=== PATIENT | male | born 1945 | race Caucasian/White ===

== ENCOUNTER 2019-06-01 08:41 | Outpatient (CLI) | payer MEDICARE, SELFPAY ==
[2019-06-01 09:49] LABS: Alanine Aminotransferase 45 U/L (16-63); Cholesterol 136 mg/dL (0-200); HDL Direct 45 mg/dL (40-60); LDL Cholesterol Calculated 78 mg/dL (<130); Triglycerides 66 mg/dL (0-150)
== END 2019-06-01 08:42 | disposition home or self-care (01) ==
LOC: CHSLAB 08:44
PROVIDERS: PCP Internal Medicine; Visit Provider Specialist
DX: I25.10 Atherosclerotic heart disease of native coronary artery without angina pectoris (principal)
CPT/HCPCS: 36415; 80061; 84460

== ENCOUNTER 2020-01-22 10:47 | Outpatient (CLI) | payer MEDICARE, SELFPAY ==
[2020-01-22 10:57] LABS: Basophils Absolute Auto 0.03 K/mm3 (0.00-0.10); Basophils Percent Auto 0.5 % (0.0-1.0); Eosinophils Absolute Auto 0.15 K/mm3 (0.02-0.50); Eosinophils Percent Auto 2.3 % (1.0-6.0); Hematocrit 48.2 % (37.0-46.0); Immature Granulocyte Absolute 0.01 K/mm3 (0.00-0.00); Immature Granulocyte Percent A 0.2 % (0.0-0.0); Lymphocytes Absolute Auto 1.74 K/mm3 (1.10-4.50); Lymphocytes Percent Auto 26.3 % (18.0-42.0); Mean Corpuscular HGB Conc 33.2 g/dL (32.0-36.0); Mean Corpuscular Hemoglobin 30.3 pg (27.0-31.0); Mean Corpuscular Volume 91.3 fL (78.0-102.0); Mean Platelet Volume 10.6 fl (8.7-11.0); Monocytes Absolute Auto 0.54 K/mm3 (0.10-0.90); Monocytes Percent Auto 8.2 % (2.0-11.0); Neutrophils Absolute Auto 4.2 K/mm3 (1.7-7.2); Neutrophils Percent Auto 62.5 % (50.0-70.0); Platelet Count Result 145 K/mm3 (150-420); Red Blood Count 5.28 M/mm3 (4.70-6.10); Red Cell Distribution Width 12.4 % (11.6-14.4); White Blood Count 6.6 K/mm3 (4.8-10.8)
== END 2020-01-22 10:48 | disposition home or self-care (01) ==
LOC: CHSLAB 10:48
PROVIDERS: PCP Internal Medicine; Visit Provider Internal Medicine
DX: J02.9 Acute pharyngitis, unspecified (principal)
CPT/HCPCS: 85025; 87081; 87880

== ENCOUNTER 2020-02-12 15:39 | Outpatient (CLI) | payer MEDICARE, OTHER, SELFPAY ==
--- NOTE | ~2020-02-12 | XR_ITS ---
XR chest 2V DATE: 02/12/2020 16:20 INDICATION: Left chest wall and rib pain, shortness of breath for 2 days. TECHNIQUE: 2 view chest COMPARISON: 11/09/2018 2 view chest FINDINGS: Heart size is within normal limits. Is mild aortic unfolding. No hilar or mediastinal enlar gement is evident since 11/09/2018. The lungs are moderately hyperinflated but clear of infiltrate or consolidation. No pleural effusion or pulmonary vascular congestion or pneumothorax. Diffuse osteopenia. IMPRESSION: No active cardiac pulmonary disease or significant change since 11/09/2018 Reviewed, dictated and finalized at location A. NISTRATIVE ASSISTANT IMPRESSION: No active cardiac pulmonary disease or significant change since 10/16
[2020-02-12 15:58] LABS: Basophils Absolute Auto 0.03 K/mm3 (0.00-0.10); Basophils Percent Auto 0.4 % (0.0-1.0); Eosinophils Absolute Auto 0.24 K/mm3 (0.02-0.50); Eosinophils Percent Auto 3.3 % (1.0-6.0); Hematocrit 48.2 % (37.0-46.0); Hemoglobin 16.1 g/dL (12.4-15.3); Immature Granulocyte Absolute 0.01 K/mm3 (0.00-0.00); Immature Granulocyte Percent A 0.1 % (0.0-0.0); Lymphocytes Absolute Auto 2.46 K/mm3 (1.10-4.50); Lymphocytes Percent Auto 34.2 % (18.0-42.0); Mean Corpuscular HGB Conc 33.4 g/dL (32.0-36.0); Mean Corpuscular Hemoglobin 30.1 pg (27.0-31.0); Mean Corpuscular Volume 90.3 fL (78.0-102.0); Mean Platelet Volume 10.4 fl (8.7-11.0); Monocytes Absolute Auto 0.85 K/mm3 (0.10-0.90); Monocytes Percent Auto 11.8 % (2.0-11.0); Neutrophils Absolute Auto 3.6 K/mm3 (1.7-7.2); Neutrophils Percent Auto 50.2 % (50.0-70.0); Platelet Count Result 159 K/mm3 (150-420); Red Blood Count 5.34 M/mm3 (4.70-6.10); Red Cell Distribution Width 12.7 % (11.6-14.4); White Blood Count 7.2 K/mm3 (4.8-10.8)
[2020-02-12 16:22] LABS: Anion Gap 8 mmol/L (8-16); Blood Urea Nitrogen 10 mg/dL (7-18); CRP < 0.5 mg/dL (0.0-0.9); Calcium 8.9 mg/dL (8.5-10.1); Carbon Dioxide 31 mmol/L (21-32); Chloride 103 mmol/L (98-108); Estimated Glomerular Filt Rate > 60; Glucose 89 mg/dL (70-99); Osmolality Calculated 292 mOsm/kg (285-295); Potassium 3.8 mmol/L (3.5-5.1); Sodium 142 mmol/L (136-145)
[2020-02-12 17:09] LABS: Erythrocyte Sedimentation Rate 2 mm/hr (0-20)
== END 2020-02-12 15:40 | disposition home or self-care (01) ==
PROVIDERS: PCP Internal Medicine; Visit Provider Internal Medicine
DX: R09.1 Pleurisy (principal)
CPT/HCPCS: 36415; 71046; 80048; 85025; 85652; 86140

== ENCOUNTER 2020-03-28 15:15 | Emergency (ER) | payer MEDICARE, OTHER, SELFPAY ==
[2020-03-28 15:18] VITALS: BP 158/96; PULSE 87; RESP 16; TEMP 36.1; O2SAT 97
[2020-03-28] MEDS: PHENYLEPHRINE HCL 0.5% NA SPRAY 15 ML BTL (*BKC) 1 SPRAY (15:40)
--- NOTE | 2020-03-28 15:59 | ED.EPISTAXIS ---
HPI - Epistaxis General Chief complaint: Epistaxis Stated complaint: AMB Source: patient Limitations: no limitations History of Present Illness HPI Narrative: Pt has had a nosebleed, was seen in pcp office and packing placed yesterday. Today he had some caudery done, and it was bleeding again. He wouldn't let his pcp pack it again. He had very conrolled oozing from nose on his arrival. complaint: epistaxis Location: left nostril Onset (ago): minute(s) Duration: constant Context: other anticoagulant use Treatment prior to arrival: nasal clamp Related Data Home Medications Medication Instructions Recorded Confirmed apixaban [Eliquis] 5 mg PO BID 03/28/20 03/28/20 cyanocobalamin (vitamin B-12) 2,500 mcg SUBLINGUAL DAILY 03/28/20 03/28/20 metoprolol succinate 25 mg PO DAILY 03/28/20 03/28/20 omeprazole 20 mg PO DAILY 03/28/20 03/28/20 pravastatin 20 mg PO DAILY 03/28/20 03/28/20 primidone 100 mg PO BID 03/28/20 03/28/20 tamsulosin 0.4 mg PO DAILY 03/28/20 03/28/20 Allergies Allergy/AdvReac Type Severity Reaction Status Date / Time No Known Allergies Allergy Verified 03/28/20 15:24 Review of Systems Review of Systems: All systems reviewed & are unremarkable except as noted in HPI and below Constitutional: Constitutional: Reports no additional constitutional complaints Eyes: Comments: eyes watered with nasal packing ENT: Reports as per HPI Cardiovascular: Cardiovascular: Reports no additional cardiovascular complaints Respiratory: Respiratory: Reports no additional respiratory complaints Gastrointestinal: Gastrointestinal: Reports no additional gastrointestinal complaints Genitourinary: Genitourinary: Reports no additional male genitourinary complaints Musculoskeletal: Musculoskeletal: Reports no additional musculoskeletal complaints Integumentary/Breasts: Skin/Breast: Reports system reviewed and no additional complaints, except as docu Neurologic: Reports system reviewed and no additional complaints, except as documented Psychiatric: Psychiatric: Reports no additional psychiatric complaints Endocrine: Endocrine: Reports no additional endocrine complaints Hematologic/Lymphatic: Hematologic/Lymphatic: Reports no additional hematologic/lymphatic complaints Allergic/Immunologic: Allergic/Immunologic: Reports no additional allergic/immunologic complaints [facility] Past Medical History Medical History (Updated 03/28/20 @ 16:17 by Paulette Rodriguez MD) Atrial flutter GERD (gastroesophageal reflux disease) HTN (hypertension) Hyperlipidemia Social History Social History (Updated 03/28/20 @ 16:18 by Paulette Rodriguez MD) Smoking status: Never smoker Alcohol intake: never Substance use: never Exam Const: General: no acute distress and alert Orientation/consciousness: patient oriented x3 HENMT: Head: normal to inspection Other: blood clot in nose, no posterior drainage. Recent caudery by pcp. minimal bleeding at this time. Slow oozing from site. Eyes: Conjunctivae: conjunctivae normal Neck: Neck: normal visual inspection Chest: Chest palpation & inspection: normal inspection of the chest Resp: Effort & Inspection: normal respiratory effort : Testes: Testes normal Back/Spine/Pelvis: Back: no CVA tenderness Skin: General skin exam: normal color Neuro: General: patient oriented x3 and moves all extremities Extrem: General: normal to inspection Psych: Mental Status: mental status grossly normal Affect: Anxious affect present Course Vital Signs Vital signs: Vital Signs Temperature 36.1 C L 03/28/20 15:18 Pulse Rate 87 03/28/20 15:18 Respiratory Rate 16 03/28/20 15:18 Blood Pressure 158/96 H 03/28/20 15:18 Pulse Oximetry 97 03/28/20 15:18 Temperature 36.1 C L 03/28/20 15:18 Pulse Rate 87 03/28/20 15:18 Respiratory Rate 16 03/28/20 15:18 Blood Pressure 140/77 03/28/20 16:07 Pulse Oximetry 97 03/28/20 15:18 Procedur
--- NOTE | 2020-03-28 16:06 | PC.NURSE ---
RHINO ROCKET PLACED BY ERP TO LEFT NARE
[2020-03-28 16:07] VITALS: BP 140/77
== END 2020-03-28 16:22 | disposition home or self-care (01) ==
PROVIDERS: Emergency Provider Emergency Medicine; PCP Internal Medicine
DX: R01.0 Benign and innocent cardiac murmurs (principal); K21.9 Gastro-esophageal reflux disease without esophagitis; I10 Essential (primary) hypertension; E78.5 Hyperlipidemia, unspecified
CPT/HCPCS: 30901; 99283; A9270

== ENCOUNTER 2020-08-08 08:58 | Outpatient (CLI) | payer MEDICARE, SELFPAY ==
[2020-08-08 09:45] LABS: Alanine Aminotransferase 41 U/L (16-63); Cholesterol 134 mg/dL (0-200); HDL Direct 44 mg/dL (40-60); LDL Cholesterol Calculated 78 mg/dL (<130); Triglycerides 58 mg/dL (0-150)
== END 2020-08-08 08:59 | disposition home or self-care (01) ==
LOC: CHSLAB 09:02
PROVIDERS: PCP Internal Medicine; Visit Provider Specialist
DX: E78.2 Mixed hyperlipidemia (principal); I48.0 Paroxysmal atrial fibrillation; I25.10 Atherosclerotic heart disease of native coronary artery without angina pectoris
CPT/HCPCS: 36415; 80061; 84460

== ENCOUNTER 2021-02-04 08:31 | Outpatient (CLI) | payer MEDICARE, SELFPAY ==
[2021-02-04 09:13] LABS: Alanine Aminotransferase 46 U/L (16-63); Cholesterol 118 mg/dL (0-200); HDL Direct 46 mg/dL (40-60); LDL Cholesterol Calculated 59 mg/dL (<130); Triglycerides 65 mg/dL (0-150)
== END 2021-02-04 08:32 | disposition home or self-care (01) ==
LOC: CHSLAB 08:33
PROVIDERS: PCP Internal Medicine; Visit Provider Specialist
DX: E78.2 Mixed hyperlipidemia (principal); I25.10 Atherosclerotic heart disease of native coronary artery without angina pectoris; R00.2 Palpitations; I48.0 Paroxysmal atrial fibrillation
CPT/HCPCS: 36415; 80061; 84460

== ENCOUNTER 2021-04-30 09:19 | Outpatient (CLI) | payer MEDICARE, SELFPAY ==
[2021-04-30 09:30] LABS: Basophils Absolute Auto 0.03 K/mm3 (0.00-0.10); Basophils Percent Auto 0.5 % (0.0-1.0); Eosinophils Absolute Auto 0.21 K/mm3 (0.02-0.50); Eosinophils Percent Auto 3.2 % (1.0-6.0); Hematocrit 48.4 % (37.0-46.0); Hemoglobin 16.6 g/dL (12.4-15.3); Immature Granulocyte Absolute 0.01 K/mm3 (0.00-0.00); Immature Granulocyte Percent A 0.2 % (0.0-0.0); Lymphocytes Absolute Auto 2.21 K/mm3 (1.10-4.50); Lymphocytes Percent Auto 33.6 % (18.0-42.0); Mean Corpuscular HGB Conc 34.3 g/dL (32.0-36.0); Mean Corpuscular Hemoglobin 31.2 pg (27.0-31.0); Mean Platelet Volume 10.6 fl (8.7-11.0); Monocytes Percent Auto 10.6 % (2.0-11.0); Neutrophils Absolute Auto 3.4 K/mm3 (1.7-7.2); Neutrophils Percent Auto 51.9 % (50.0-70.0); Platelet Count Result 153 K/mm3 (150-420); Red Blood Count 5.32 M/mm3 (4.70-6.10); Red Cell Distribution Width 12.6 % (11.6-14.4); White Blood Count 6.6 K/mm3 (4.8-10.8)
[2021-04-30 09:38] LABS: Appearance Urine Clear (Clear); Bilirubin Urine Negative (Negative); Color Urine Yellow (Yellow); Glucose Urine UA Negative (Negative); Ketones Urine Negative (Negative); Leukocyte Esterase Ur Negative (Negative); Nitrate Urine Negative (Negative); Protein Urine Negative (Negative); pH Urine 7.5 (5.0-8.0)
[2021-04-30 09:51] LABS: Add Urine Microscopic? YES; Blood Urine Trace-Intact (Negative); RBC Urine 0-2 /hpf (0-2); WBC Urine None seen /hpf (0-3)
[2021-04-30 09:52] LABS: Bacteria Urine Trace /hpf
[2021-04-30 10:27] LABS: Alanine Aminotransferase 40 U/L (16-63); Albumin Level 3.8 g/dL (3.4-5.0); Alkaline Phosphatase 59 U/L (46-116); Anion Gap 5 mmol/L (8-16); Aspartate Amino Transferase 28 U/L (15-37); Bilirubin,Total 0.7 mg/dL (0.00-1.00); Blood Urea Nitrogen 14 mg/dL (7-18); Calcium 8.4 mg/dL (8.5-10.1); Carbon Dioxide 32 mmol/L (21-32); Chloride 105 mmol/L (98-108); Cholesterol 119 mg/dL (0-200); Estimated Glomerular Filt Rate > 60; Glucose 103 mg/dL (70-99); HDL Direct 45 mg/dL (40-60); LDL Cholesterol Calculated 63 mg/dL (<130); Osmolality Calculated 294 mOsm/kg (285-295); Prostate Specific Antigen 5.4 ng/mL (< OR = 4.0); Sodium 142 mmol/L (136-145); Total Protein 7.2 g/dL (6.4-8.2); Triglycerides 57 mg/dL (0-150); Vitamin B12 1914 pg/mL (193-986)
[2021-04-30 12:22] LABS: Hemoglobin A1C 5.8 % (<5.7)
== END 2021-04-30 09:20 | disposition home or self-care (01) ==
LOC: CHSLAB 09:22
PROVIDERS: PCP Internal Medicine; Visit Provider Internal Medicine
DX: E78.5 Hyperlipidemia, unspecified (principal); R97.20 Elevated prostate specific antigen [PSA]; D45 Polycythemia vera; E53.8 Deficiency of other specified B group vitamins; R73.01 Impaired fasting glucose
CPT/HCPCS: 36415; 80053; 80061; 81001; 82607; 83036; 84153; 85025

== ENCOUNTER 2021-07-14 09:47 | Outpatient (CLI) | payer MEDICARE, OTHER, SELFPAY ==
--- NOTE | ~2021-07-14 | US_ITS ---
EXAMINATION: US scrotum doppler DATE: 07/14/2021 10:35 INDICATION: Acute bilateral scrotal pain and swelling. TECHNIQUE: Grayscale and Doppler ultrasound images of the testes were obtained. COMPARISON: None. FINDINGS: The right testis measures 4.0 x 2.0 x 3.0 cm. The left testis measures 3.9 x 2.4 x 3.3 cm. There is normal vascular flow to both testes. The right epididymis is normal with normal vascular enrique w. The left epididymis is normal with normal vascular flow. There are small bilateral hydroceles. The re are bilateral varicoceles. IMPRESSION: 1. Small bilateral hydroceles. 2. Bilateral varicoceles. Reviewed, dictated and finalized at location A.
== END 2021-07-14 09:48 | disposition home or self-care (01) ==
LOC: CHSIMG 09:51
PROVIDERS: PCP Internal Medicine; Visit Provider Internal Medicine
DX: N50.812 Left testicular pain (principal); N50.89 Other specified disorders of the male genital organs
CPT/HCPCS: 76870; 93976

== ENCOUNTER 2021-11-11 09:35 | Outpatient (CLI) | payer MEDICARE, OTHER, SELFPAY ==
[2021-11-11 10:04] LABS: Alanine Aminotransferase 31 U/L (16-63); Cholesterol 105 mg/dL (0-200); HDL Direct 43 mg/dL (40-60); LDL Cholesterol Calculated 55 mg/dL (<130); Triglycerides 36 mg/dL (0-150)
== END 2021-11-11 09:36 | disposition home or self-care (01) ==
LOC: CHSLAB 09:37
PROVIDERS: PCP Internal Medicine; Visit Provider Specialist
DX: E78.2 Mixed hyperlipidemia (principal); I48.0 Paroxysmal atrial fibrillation
CPT/HCPCS: 36415; 80061; 84460

== ENCOUNTER 2022-05-18 08:11 | Outpatient (CLI) | payer MEDICARE, SELFPAY ==
[2022-05-18 08:47] LABS: Basophils Absolute Auto 0.03 K/mm3 (0.00-0.10); Basophils Percent Auto 0.5 % (0.0-1.0); Eosinophils Absolute Auto 0.28 K/mm3 (0.02-0.50); Eosinophils Percent Auto 4.7 % (1.0-6.0); Hematocrit 47.2 % (37.0-46.0); Hemoglobin 15.9 g/dL (12.4-15.3); Immature Granulocyte Absolute 0.01 K/mm3 (0.00-0.00); Immature Granulocyte Percent A 0.2 % (0.0-0.0); Immature Platelet Fraction Pct 5.2 % (1.0-7.0); Lymphocytes Absolute Auto 2.14 K/mm3 (1.10-4.50); Lymphocytes Percent Auto 36.3 % (18.0-42.0); Mean Corpuscular HGB Conc 33.7 g/dL (32.0-36.0); Mean Corpuscular Hemoglobin 30.4 pg (27.0-31.0); Mean Corpuscular Volume 90.2 fL (78.0-102.0); Mean Platelet Volume 11.1 fl (8.7-11.0); Monocytes Absolute Auto 0.65 K/mm3 (0.10-0.90); Neutrophils Absolute Auto 2.8 K/mm3 (1.7-7.2); Neutrophils Percent Auto 47.3 % (50.0-70.0); Platelet Count Result 137 K/mm3 (150-420); Red Blood Count 5.23 M/mm3 (4.70-6.10); Red Cell Distribution Width 12.6 % (11.6-14.4); White Blood Count 5.9 K/mm3 (4.8-10.8)
[2022-05-18 08:49] LABS: Appearance Urine Clear (Clear); Bilirubin Urine Negative (Negative); Blood Urine Trace-Intact (Negative); Color Urine Yellow (Yellow); Glucose Urine UA Negative (Negative); Ketones Urine Negative (Negative); Leukocyte Esterase Ur Negative LEU/UL (Negative); Nitrate Urine Negative (Negative); Protein Urine Negative (Negative); Urobilinogen Urine 0.2 mg/dL (0.2-1.0)
[2022-05-18 09:00] LABS: Add Urine Microscopic? YES; Bacteria Urine None seen /hpf; RBC Urine 0-2 /hpf (0-2); Squamous Epithelial Cell Urine Rare /hpf (Few); WBC Urine 0-3 /hpf (0-3)
[2022-05-18 09:08] LABS: Hemoglobin A1C 5.5 % (<5.7)
[2022-05-18 09:48] LABS: Alanine Aminotransferase 39 U/L (16-63); Albumin Level 3.8 g/dL (3.4-5.0); Alkaline Phosphatase 59 U/L (46-116); Anion Gap 7 mmol/L (8-16); Aspartate Amino Transferase 30 U/L (15-37); Bilirubin,Total 0.8 mg/dL (0.00-1.00); Blood Urea Nitrogen 9 mg/dL (7-18); Calcium 8.8 mg/dL (8.5-10.1); Carbon Dioxide 32 mmol/L (21-32); Chloride 106 mmol/L (98-108); Cholesterol 128 mg/dL (0-200); Creatine Kinase 33 U/L (39-308); Estimated Glomerular Filt Rate > 60; Glucose 108 mg/dL (70-99); HDL Direct 45 mg/dL (40-60); LDL Cholesterol Calculated 68 mg/dL (<130); Osmolality Calculated 299 mOsm/kg (285-295); Potassium 3.9 mmol/L (3.5-5.1); Prostate Specific Antigen 6.4 ng/mL (< OR = 4.0); Sodium 145 mmol/L (136-145); Total Protein 7.3 g/dL (6.4-8.2); Triglycerides 76 mg/dL (0-150); Vitamin B12 1795 pg/mL (193-986)
== END 2022-05-18 08:12 | disposition home or self-care (01) ==
LOC: CHSLAB 08:13
PROVIDERS: PCP Internal Medicine; Visit Provider Internal Medicine
DX: N40.1 Benign prostatic hyperplasia with lower urinary tract symptoms (principal); E53.8 Deficiency of other specified B group vitamins; R53.82 Chronic fatigue, unspecified; E78.5 Hyperlipidemia, unspecified; N39.0 Urinary tract infection, site not specified; R73.01 Impaired fasting glucose
CPT/HCPCS: 36415; 80053; 80061; 81001; 82550; 82607; 83036; 84153; 85025; 85055

== ENCOUNTER 2023-06-09 08:33 | Outpatient (CLI) | payer MEDICARE, SELFPAY ==
[2023-06-09 09:22] LABS: Basophils Absolute Auto 0.04 K/mm3 (0.00-0.10); Basophils Percent Auto 0.6 % (0.0-1.0); Eosinophils Absolute Auto 0.23 K/mm3 (0.02-0.50); Eosinophils Percent Auto 3.5 % (1.0-6.0); Hematocrit 48.8 % (37.0-46.0); Hemoglobin 16.2 g/dL (12.4-15.3); Immature Granulocyte Absolute 0.02 K/mm3 (0.00-0.00); Immature Granulocyte Percent A 0.3 % (0.0-0.0); Lymphocytes Absolute Auto 2.04 K/mm3 (1.10-4.50); Lymphocytes Percent Auto 30.8 % (18.0-42.0); Mean Corpuscular HGB Conc 33.2 g/dL (32-36); Mean Corpuscular Hemoglobin 30.1 pg (27.0-31.0); Mean Corpuscular Volume 90.7 fL (78.0-102.0); Mean Platelet Volume 10.9 fl (8.7-11.0); Monocytes Absolute Auto 0.64 K/mm3 (0.10-0.90); Monocytes Percent Auto 9.7 % (2.0-11.0); Neutrophils Absolute Auto 3.65 K/mm3 (1.70-7.20); Neutrophils Percent Auto 55.1 % (50.0-70.0); Platelet Count Result 158 K/mm3 (150-420); Red Blood Count 5.38 M/mm3 (4.70-6.10); Red Cell Distribution Width 12.5 % (11.6-14.4); White Blood Count 6.6 K/mm3 (4.8-10.8)
[2023-06-09 09:25] LABS: Appearance Urine Clear (Clear); Bilirubin Urine Negative (Negative); Blood Urine 1+ (Negative); Color Urine Yellow (Yellow); Glucose Urine UA Negative (Negative); Ketones Urine Negative (Negative); Leukocyte Esterase Ur Negative LEU/UL (Negative); Nitrate Urine Negative (Negative); Protein Urine Negative (Negative); Urobilinogen Urine 0.2 mg/dL (0.2-1.0); pH Urine 6.5 (5.0-8.0)
[2023-06-09 09:43] LABS: Add Urine Microscopic? YES; Bacteria Urine Trace /hpf; Squamous Epithelial Cell Urine Rare /hpf (Few); WBC Urine None seen /hpf (0-3)
[2023-06-09 09:57] LABS: Hemoglobin A1C 5.6 % (<5.7)
[2023-06-09 11:17] LABS: Alanine Aminotransferase 43 U/L (16-63); Albumin Level 4.1 g/dL (3.4-5.0); Alkaline Phosphatase 62 U/L (46-116); Anion Gap 5 mmol/L (4-12); Aspartate Amino Transferase 46 U/L (15-37); Blood Urea Nitrogen 13 mg/dL (7-18); Calcium 8.9 mg/dL (8.5-10.1); Carbon Dioxide 35 mmol/L (21-32); Chloride 103 mmol/L (98-108); Cholesterol 128 mg/dL (0-200); Creatine Kinase 48 U/L (39-308); Estimated Glomerular Filt Rate > 60; Glucose 100 mg/dL (70-99); HDL Direct 49 mg/dL (40-60); LDL Cholesterol Calculated 69 mg/dL (<130); Osmolality Calculated 296 mOsm/kg (285-295); Potassium 4.3 mmol/L (3.5-5.1); Sodium 143 mmol/L (136-145); Total Protein 7.5 g/dL (6.4-8.2); Triglycerides 52 mg/dL (0-150)
[2023-06-09 11:25] LABS: Vitamin B12 > 2000 pg/mL (193-986)
== END 2023-06-09 08:34 | disposition home or self-care (01) ==
PROVIDERS: PCP Internal Medicine; Visit Provider Internal Medicine
DX: E53.8 Deficiency of other specified B group vitamins (principal); R73.01 Impaired fasting glucose; I10 Essential (primary) hypertension; E78.2 Mixed hyperlipidemia; N39.0 Urinary tract infection, site not specified
CPT/HCPCS: 36415; 80053; 80061; 81001; 82550; 82607; 83036; 85025

== ENCOUNTER 2023-07-20 08:17 | Outpatient (CLI) | payer MEDICARE, OTHER, SELFPAY ==
[2023-07-20 08:50] LABS: Appearance Urine Clear (Clear); Bilirubin Urine Negative (Negative); Blood Urine 1+ (Negative); Color Urine Yellow (Yellow); Glucose Urine UA Negative (Negative); Ketones Urine Negative (Negative); Leukocyte Esterase Ur Negative (Negative); Nitrate Urine Negative (Negative); Protein Urine Negative (Negative)
[2023-07-20 09:00] LABS: Add Urine Microscopic? YES; Squamous Epithelial Cell Urine Few /hpf (Few); WBC Urine None seen /hpf (0-3)
[2023-07-20 09:01] LABS: Bacteria Urine None seen /hpf; Mucus Urine Few /lpf
[2023-07-20 09:18] LABS: Alanine Aminotransferase 39 U/L (16-63); Albumin Level 3.9 g/dL (3.4-5.0); Alkaline Phosphatase 56 U/L (46-116); Anion Gap 5 mmol/L (4-12); Aspartate Amino Transferase 38 U/L (15-37); Blood Urea Nitrogen 14 mg/dL (7-18); Calcium 8.8 mg/dL (8.5-10.1); Carbon Dioxide 34 mmol/L (21-32); Chloride 103 mmol/L (98-108); Estimated Glomerular Filt Rate > 60; Glucose 97 mg/dL (70-99); Osmolality Calculated 294 mOsm/kg (285-295); Potassium 4.2 mmol/L (3.5-5.1); Sodium 142 mmol/L (136-145); Total Protein 7.6 g/dL (6.4-8.2)
== END 2023-07-20 08:18 | disposition home or self-care (01) ==
LOC: CHSLAB 08:19
PROVIDERS: PCP Internal Medicine; Visit Provider Internal Medicine
DX: R31.29 Other microscopic hematuria (principal); R74.8 Abnormal levels of other serum enzymes
CPT/HCPCS: 36415; 80053; 81001; 88112

== ENCOUNTER 2023-08-01 08:42 | Outpatient (CLI) | payer MEDICARE, OTHER, SELFPAY ==
--- NOTE | ~2023-08-01 | CT_ITS ---
EXAMINATION: CT abdomen pelvis w con DATE: 08/01/2023 09:48 INDICATION: Elevated liver enzymes. Hematuria. TECHNIQUE: Computed tomography (CT) of the abdomen and pelvis was performed with 100 mL Omnipaque-350 intravenous contrast. Automated exposure control and iterative reconstruction technique were employe d. The dose-length product was 815.61 mGy-cm. COMPARISON: None FINDINGS: Lung bases are clear. Heart size is normal. No pericardial or pleural effusion. Liver, gallbladder, s pleen, pancreas, bilateral adrenal glands and right kidney are normal. No intra or extra hepatic bili silvestre ductal dilation. 2.0 cm left renal cyst. Large amount of stool scattered throughout the colon. Sm all bowel and appendix are normal. Mild diffuse bladder wall thickening which may be related to chron ic outlet obstruction from the enlarged prostate. No free intraperitoneal gas or fluid. No pathologic ally enlarged abdominal or pelvic lymphadenopathy. Small fat-containing left inguinal hernia. Moderat e lumbar spondylosis. IMPRESSION: 1. Diffuse mild bladder wall thickening which could be due to partially decompressed state, chronic o utlet obstruction related to the enlarged prostate, cystitis acute or chronic or some combination the reof. Reviewed, dictated and finalized at location A. IMPRESSION: 1. Diffuse mild bladder wall thickening which could be due to partially decompr essed state, chronic outlet obstruction related to the enlarged prostate, cysti tis acute or chronic or some combination thereof.
== END 2023-08-01 08:43 | disposition home or self-care (01) ==
LOC: CHSIMG 08:44
PROVIDERS: PCP Internal Medicine; Visit Provider Internal Medicine
DX: R74.01 Elevation of levels of liver transaminase levels (principal); R31.9 Hematuria, unspecified; R93.41 Abnormal radiologic findings on diagnostic imaging of renal pelvis, ureter, or bladder; N40.0 Benign prostatic hyperplasia without lower urinary tract symptoms
CPT/HCPCS: 74177; Q9967

== ENCOUNTER 2024-04-25 14:12 | Outpatient (CLI) | payer MEDICARE, OTHER, SELFPAY ==
--- NOTE | ~2024-04-25 | XR_ITS ---
EXAMINATION: XR chest 2V DATE: 04/25/2024 14:39 INDICATION: Cough. TECHNIQUE: Frontal and lateral views of the chest were obtained. COMPARISON: Chest 2 views 02/12/2020, CT abdomen and pelvis 08/01/2023 FINDINGS: There is no pneumonia, pleural effusion, or pneumothorax. The heart size is normal. IMPRESSION: 1. No acute cardiopulmonary disease. Reviewed, dictated and finalized at location B.
[2024-04-25 14:42] LABS: Hematocrit 47.2 % (37.0-46.0); Hemoglobin 15.6 g/dL (12.4-15.3); Mean Corpuscular HGB Conc 33.1 g/dL (32-36); Mean Corpuscular Hemoglobin 29.9 pg (27.0-31.0); Mean Corpuscular Volume 90.4 fL (78.0-102.0); Mean Platelet Volume 10.9 fl (8.7-11.0); Platelet Count Result 162 K/mm3 (150-420); Red Blood Count 5.22 M/mm3 (4.70-6.10); Red Cell Distribution Width 12.1 % (11.6-14.4); White Blood Count 7.1 K/mm3 (4.8-10.8)
[2024-04-25 15:02] LABS: Alanine Aminotransferase 35 U/L (16-63); Albumin Level 4.1 g/dL (3.4-5.0); Alkaline Phosphatase 69 U/L (46-116); Anion Gap 4 mmol/L (4-12); Aspartate Amino Transferase 26 U/L (15-37); Bilirubin,Total 0.9 mg/dL (0.00-1.00); Blood Urea Nitrogen 11 mg/dL (7-18); Calcium 9.5 mg/dL (8.5-10.1); Carbon Dioxide 34 mmol/L (21-32); Chloride 106 mmol/L (98-108); Estimated Glomerular Filt Rate > 60; Glucose 81 mg/dL (70-99); Osmolality Calculated 296 mOsm/kg (285-295); Potassium 4.7 mmol/L (3.5-5.1); Sodium 144 mmol/L (136-145)
[2024-04-25 15:06] LABS: Strep Group A RT-PCR NOT DETECTED (Negative)
[2024-04-25 15:18] LABS: Influenza A QL RT-PCR Negative (Negative); Influenza B QL RT-PCR Negative (Negative); RSV RNA, RT-PCR Negative (Negative); SARS-CoV-2 RNA PCR Negative (Negative)
--- OUTSIDE RECORDS SUMMARY | 2024-04-25 16:00 | XMS_ITS | Encounter Summary ---
Author Organization [facility] Address [address] [place] [address] Care Team Providers Care Glass Processing Worker Name Role Phone Jesica Ferro MD Unavailable Mathieu Nunes MD Primary Care Provider [phone] Nancy Morel MD Unavailable Encounter Details Date Type Department Care Team (Late st Contact Info) Description 10/10/2023 [employer] Message Enc [facility]eld [address] [place] [phone] [facility] Provider Results Social History Tobacco Use Types Packs/Day Years Used Date Smoking Tobacco: Former Cigarettes 1.5 23 1 962 - 02/15/1984 Smokeless Tobacco: Never Alcohol Use Standard Drinks/Week Comments Never 0 (1 standard drink = 0.6 oz pur e alcohol) Sex and Gender Information Value Date Recorded Sex Assigned at Not on file Legal Sex Male 10:24 PM CDT Gender Identity Male 05/18/2021 6:21 AM CDT Sexual Orientation Straight 05/18/2021 6: 21 AM CDT Occupation Industry Job Start Date Job End Date Retired Not on file Not on file Not on file Not on file Not on file Not on file Not on file documented as of this encounter Functional Status * RETIRED Are you deaf or do you have serious difficulty hearing Answer Date of Assessment Author Status No 10/26/2018 8:49 AM CDT Activ e * RETIRED Are you blind or do you have serious difficulty seeing, even when wearing glasses? Answer Date of Assessment Author Status No 10/26/2018 8:49 AM CDT Activ e * Do you have serious difficulty walking or climbing stairs? Answer Date of Assessment Author Status No 10/26/2018 8:49 AM CDT Naomy Mendoza sa, RN Active * Do you have difficulty dressing or bathing? Answer Date of Assessment Author Status No 10/26/2018 8:49 AM CDT Naomy Mendoza sa, RN Active * Because of a physical, mental, or emotional condition, do you have difficulty doing errands alone such as visiting a doctor's office or shopping? Answer Date of Assessment Author Status No 10/26/2018 8:49 AM CDT Naomy Mendoza sa, RN Active documented as of this encounter Mental Status * Because of a physical, mental, or emotional condition, do you have serious difficulty concentrating, remembering, or making decisions? Answer Entry Date Author Status No 10/26/2018 8:49 AM CDT Naomy Mendoza sa, RN Active documented in this encounter Plan of Treatment Upcoming Encounters Date Type Department Care Team (Late st Contact Info) Description 06/26/2024 1:30 PM CDT [facility] [address] [place] [phone] Rich Redmond, PAOtisC [address] [place] [address] 09/10/2024 12:15 PM CDT Office Visit [facility] [place] [phone] Nancy Morel MD [address] [place] [address] documented as of this encounter Visit Diagnoses Not on filedocumented in this encounter Care Teams Glass Processing Worker Relationship Specialty Start Date End Date Mathieu Nunes MD [address] [place] [address] PCP - General INTERNAL MEDICINE 10/24/18 Jesica Ferro MD [address] [place] [address] EP Repair Service Dispatcher CLINICAL CARDIAC ELECTROPHYSIOLOGY 08/21/15 Nancy Morel MD [address] [place] [address] Consulting Physician CARDIOVASCULAR DISEASE 06/01/23 documented as of this encounter
--- OUTSIDE RECORDS SUMMARY | 2024-04-25 16:00 | XMS_ITS | Referral Summary ---
Author Organization [facility] [email or web address] Address [address] [place] [address] Care Team Providers Care Certified Surgical Tech/First Assistant Name Role Phone Bryant Hancock MD Primary Care Provider [phone] Allergies No known active allergies Medications Eliquis 5 mg tablet 03/22/2020 Active magnesium oxide (MAG-OX) 400 mg (241.3 mg elemental magnesium) tablet Take 400 mg by mouth daily Active metoprolol XL (TOPROL-XL) 25 mg extended release tablet 03/31/2020 Acti ve omeprazole (PriLOSEC) 20 mg capsule Take 20 mg by mouth daily 07/23/2015 Active pravastatin (PRAVACHOL) 20 mg tablet TAKE 1 TABLET NIGHTLY AT BEDTIME 03/02/2020 Active primidone (MYSOLINE) 50 mg tablet Take 50 mg by mouth 2 (two) times a day Active tamsulosin (FLOMAX) 0.4 mg extended release capsule 03/31/2020 Act jose a Active Problems Problem Noted Date Diagnosed Date External hemorrhoids 05/07/2016 Thrombosed external hemorrhoids 04/02/2016 Hemorrhoids 04/02/2016 Social History Tobacco Use Types Packs/Day Years Used Date Smoking Tobacco: Former Smokeless Tobacco: Never Sex and Gender Information Value Date Recorded Sex Assigned at Not on file Legal Sex Male 12:57 AM PAINTER AND GRADER CORK Gender Identity Not on file Sexual Orientation Not on file Last Filed Vital Signs Vital Sign Reading Time Taken Comments Blood Pressure 119/73 05/07/2016 8:51 AM CDT Pulse 70 05/07/2016 8:51 AM CDT Temperature 37.1 C (98.7 F) 04/01/2020 1:08 PM PAINTER AND GRADER CORK Respiratory Rate - - Oxygen Saturation - - Inhaled Oxygen Concentration - - Weight 99.8 kg (220 lb) 04/01/2020 1:08 PM PAINTER AND GRADER CORK Height 177.8 cm (5' 10 ) 04/01/2020 1:08 PM PAINTER AND GRADER CORK Body Mass Index 31.57 04/01/2020 1:08 PM PAINTER AND GRADER CORK Plan of Treatment Not on file Insurance MEDICARE [employer] Care Teams Certified Surgical Tech/First Assistant Relationship Specialty Start Date End Date Bryant Hancock MD [address] [place] [address] PCP - General 06/02/16
--- OUTSIDE RECORDS SUMMARY | 2024-04-25 16:00 | XMS_ITS | Encounter Summary ---
Author Organization [facility] Address [facility] [place] [address] Care Team Providers Care Turret Lathe Set Up Operator Name Role Phone Bryant Hancock MD Primary Care Provider Jesica Elias MD Unavailable Juan Woo MD Unavailable UnavailEunice Richardson AGAP- Unavailable [phone] Erika Tobias PLUMBING SERVICE TECHNICIAN Unavailable [phone] Mathieu Nunes MD Primary Care Provider [phone] Juan Woo MD Unavailable Unavailabl Sonia Nielson APRN, PLUMBING SERVICE TECHNICIAN-C Unavailable Nancy Morel MD Unavailable Encounter Details Date Type Department Care Team (Late st Contact Info) Description 05/20/2011 Abstract [facility] [address] [place] [address] Juan Woo MD Social History Tobacco Use Types Packs/Day Years Used Date Smoking Tobacco: Former Cigarettes Smokeless Tobacco: Never Alcohol Use Standard Drinks/Week Comments No 0 (1 standard drink = 0.6 oz [...] on file documented as of this encounter Plan of Treatment Upcoming Encounters Date Type Department Care Team (Late st Contact Info) Description 06/26/2024 1:30 PM CDT [facility] [address] [place] [phone] Rich Redmond PA-C [address] [place] [phone] 09/10/2024 12:15 PM CDT Office Visit [facility] [place] [address] Nancy Morel MD [address] [place] [address] documented as of this encounter Visit Diagnoses Not on filedocumented in this encounter Care Teams Turret Lathe Set Up Operator Relationship Specialty Start Date End Date Bryant Hancock MD PCP - General SURGERY 08/21/15 10/23/18 Mathieu Nunes MD [address] [place] [address] PCP - General INTERNAL MEDICINE 10/24/18 Juan Woo MD PCP - [facility] Attributed Provider 11/14/16 07/29/19 Jesica Ferro MD [address] [place] [phone] EP Spinning Lathe Operator Automatic CLINICAL CARDIAC ELECTROPHYSIOLOGY 08/21/15 Juan Woo MD [address] [place] [address] [place] Spinning Lathe Operator Automatic CARDIOVASCULAR DISEASE 12/22/16 05/31/23 Eunice Temple AGACNP-BC [address] [address] Nurse Practitioner Electrophysiology 03/30/18 03/20/19 Erika Tobias NP [address] [facility] [address] [place] [address] Nurse Practitioner Electrophysiology 03/30/18 05/31/23 Sonia Go APRN, PLUMBING SERVICE TECHNICIAN-C [address] [place] [address] [phone] Vascular/Cardiologis t NURSE PRACTITIONER 02/01/19 05/31/23 Nancy Morel MD [address] [place] [address] Consulting Physician CARDIOVASCULAR DISEASE 06/01/23 documented as of this encounter
--- OUTSIDE RECORDS SUMMARY | 2024-04-25 16:00 | XMS_ITS | Encounter Summary ---
Author Organization [facility] Address [address] [place] [address] Care Team Providers Care Hospital Plan Administrator Name Role Phone Bryant Hancock MD Primary Care Provider Jesica Elias MD Unavailable Juan Woo MD Unavailable Unavailabl Eunice Welch AGACNP-BC Unavailable [phone] Erika Tobias PROCESS DESIGNER Unavailable [phone] Mathieu Nunes MD Primary Care Provider [phone] Juan Woo MD Unavailable Unavailabl Sonia Nielson APRN, PROCESS DESIGNER-C Unavailable [phone] Nancy Morel MD Unavailable Encounter Details Date Type Department Care Team (Late st Contact Info) Description 11/03/2016 Abstract [facility] [address] [place] [address] Jesica Ferro MD [address] [place] [address] Social History Tobacco Use Types Packs/Day Years Used Date Smoking Tobacco: Former Cigarettes 1.5 23 1 962 - 1985 Smokeless Tobacco: Never Alcohol Use Standard Drinks/Week [...] Description 06/26/2024 1:30 PM CDT Office Visit [facility] [address] [place] [phone] Rich Redmond, PAOtisC [address] [place] [phone] 09/10/2024 12:15 PM CDT Office Visit [facility] [place] [address] Nancy Morel MD [address] [place], [place] [phone] documented as of this encounter Procedures Procedure Name Priority Date/Time Associated Diagnosis Comments CMP (ABSTRACTED LAB) Routine 11/01/2016 CBC (OUTSIDE LAB) Routine 11/01/2016 documented in this encounter Results * CMP (ABSTRACTED LAB) (11/01/2016) SODIUM S/P/B 143 POTASSIUM S/P/B 4.0 CHLORIDE S/P/B 106 CO2 30 BUN 9 CREATININE S/P/B 0.93 0.7 - 1.3 EGFR NON-AFR. AMER. 85 <=90 CALCIUM S/P/B 9.0 GLUCOSE 112 mg/dL TOTAL PROTEIN S/P/B 7.8 ALBUMIN S/P/B 3.9 3.5 - 5.0 AST 26 ALT 32 ALKALINE PHOSPHATASE S/P/B 69 BILIRUBIN TOTAL S/P/B 0.61 11/01/2016 [facility] Abstract LAB-OUTSIDE/ABSTRACTED Final Result * CBC (OUTSIDE LAB) (11/01/2016) WBC 6.6 HGB 16.6 HCT 48.3 PLT 155 RBC 5.48 11/01/2016 us Doc [facility] Abstract LAB-OUTSIDE/ABSTRACTED Final Result documented in this encounter Visit Diagnoses Not on filedocumented in this encounter Care Teams Hospital Plan Administrator Relationship Specialty Start Date End Date Bryant Hancock MD PCP - General SURGERY 08/21/15 10/23/18 Mathieu Nunes MD [address] [place] [phone] PCP - General INTERNAL MEDICINE 10/24/18 Juan Woo MD PCP - [facility] Attributed Provider 11/14/16 07/29/19 Jesica Ferro MD [address] [place] [phone] EP Dairy Farmer CLINICAL CARDIAC ELECTROPHYSIOLOGY 08/21/15 Juan Woo MD [address] [place] [phone] [place] Dairy Farmer CARDIOVASCULAR DISEASE 12/22/16 05/31/23 Eunice Temple AGACNLolly- [address] [facility] [address] [place] [phone] Nurse Practitioner Electrophysiology 03/30/18 03/20/19 Erika Tobias NP [address] [facility] [address] [place] [phone] Nurse Practitioner Electrophysiology 03/30/18 05/31/23 Sonia Go APRN, PROCESS DESIGNER-C [address] [facility] [address] [place] [phone] Vascular/Cardiologis t NURSE PRACTITIONER 02/01/19 05/31/23 Nancy Morel MD [address] [place] [address] Consulting Physician CARDIOVASCULAR DISEASE 06/01/23 documented as of this encounter
--- OUTSIDE RECORDS SUMMARY | 2024-04-25 16:00 | XMS_ITS | Clinical Summary ---
Author Organization [facility] [employer] Address [address] [place] [address] Care Team Providers Care Instructional Technology Teacher Name Role Phone Bryant Hancock MD Primary Care Provider [phone] Allergies No known active allergies Medications Eliquis [...] 05/07/2016 Thrombosed external hemorrhoids 04/02/2016 Hemorrhoids 04/02/2016 Surgical History Surgery Date Site/Laterality Comments CATARACT EXTRACTION HEMORROIDECTOMY Medical History Medical History Date Comments Atrial fibrillation (HCC) Atrial flutter (HCC) GERD (gastroesophageal reflux disease) Social History Tobacco Use Types Packs/Day Years Used Date Smoking Tobacco: Former Smokeless Tobacco: Never Sex and Gender Information Value Date Recorded Sex Assigned at Not on file Legal Sex Male 12:57 AM PRACTICE PERFORMANCE MANAGER Gender Identity Not on file Sexual Orientation Not on file Obstetrics History Last Filed Vital Signs Vital Sign Reading Time Taken Comments Blood Pressure 119/73 05/07/2016 8:51 AM CDT Pulse 70 05/07/2016 8:51 AM CDT Temperature 37.1 C (98.7 F) 04/01/2020 1:08 PM PRACTICE PERFORMANCE MANAGER Respiratory Rate - - Oxygen Saturation - - Inhaled Oxygen Concentration - - Weight 99.8 kg (220 lb) 04/01/2020 1:08 PM PRACTICE PERFORMANCE MANAGER Height 177.8 cm (5' 10 ) 04/01/2020 1:08 PM PRACTICE PERFORMANCE MANAGER Body Mass Index 31.57 04/01/2020 1:08 PM PRACTICE PERFORMANCE MANAGER Plan of Treatment Not on file Insurance MEDICARE [facility] import2 LIFE Care Teams Instructional Technology Teacher Relationship Specialty Start Date End Date Bryant Hancock MD [address] [place] [address] PCP - General 06/02/16
--- OUTSIDE RECORDS SUMMARY | 2024-04-25 16:00 | XMS_ITS | Clinical Summary ---
Author Organization [facility] Address [facility] [place] [address] Care Team Providers Care Fur Blower Operator Name Role Phone Jesica Ferro MD Unavailable Mathieu Nunes MD Primary Care Provider [phone] Nancy Morel MD Unavailable Allergies No known active allergies Medications Multiple Vitamin (MULTI-VITAMIN) tablet Take 1 tablet by mouth daily. 2 Active omeprazole 20 MG capsule Take 1 capsule (20 mg total) by mouth daily. 6 Active magnesium oxide 400 MG tablet Take 1 tablet (400 mg total) by mouth daily. Active Cyanocobalamin (VITAMIN B 12 OR) Take 1 tablet by mouth daily. Active aspirin EC (ECOTRIN) 81 MG tablet Take 1 tablet (81 mg total) by mouth daily. Active finasteride (PROSCAR) 5 MG tablet Take 1 tablet (5 mg total) by mouth daily. 3 Active levalbuterol (XOPENEX HFA) 45 MCG/ACT inhaler 4 Active losartan (COZAAR) 50 MG tablet 4 Active apixaban (ELIQUIS) 5 MG tablet Take 1 tablet (5 mg total) by mouth 2 (two) times daily. 180 tablet 3 4 Active propranolol LA (INDERAL LA) 80 MG 24 hr capsule Take 1 capsule (80 mg total) by mouth daily. 90 capsule 2 4 Active pravastatin (PRAVACHOL) 80 MG tablet Take 1 tablet (80 mg total) by mouth nightly at bedtime. 90 tablet 3 5 Active pravastatin (PRAVACHOL) 80 MG tablet Take 1 tablet (80 mg total) by mouth nightly at bedtime. 90 tablet 3 4 04/12/19 25 Discontinu ed(Reorder ) Active Problems Problem Noted Date Diagnosed Date S/P ablation of atrial flutter 03/14/2023 Essential tremor 02/17/2022 Other hyperlipidemia 02/17/2022 Coronary artery calcification seen on CT scan Chronic anticoagulation 10/04/2018 GERD (gastroesophageal reflux disease) 7 Typical atrial flutter ([facility]) 016 Supraventricular tachycardia ([facility]) 6 Palpitations 08/13/2015 Paroxysmal atrial fibrillation ([facility]) 08/13/2015 S/P ablation of atrial fibrillation Resolved Problems Problem Noted Date Diagnosed Date Resolved Date Current use of senior living anticoagulation 08/22/2015 12/24/2016 Cardiac dysrhythmia 08/13/2015 07/12/19 20 Family History Medical History Relation Comments Mental Health Father Asthma Mother COPD Mother Mental Health Mother Relation Status Comments Father Mother Social History Tobacco Use Types Packs/Day Years Used Date Smoking Tobacco: Former Cigarettes 1.5 23 1 962 - 02/15/1984 Smokeless Tobacco: Never Tobacco Cessation:Counseling Given: Not Answered Alcohol Use Standard Drinks/Week Comments Never 0 [...] file Not on file Not on file Last Filed Vital Signs Vital Sign Reading Time Taken Comments Blood Pressure 138/79 09/23/2023 11:52 AM CDT Pulse 64 09/23/2023 11:52 AM CDT Temperature 36.7 C (98.1 F) 10/26/2018 3:47 AM CDT Respiratory Rate 16 09/23/2023 11:52 AM CDT Oxygen Saturation 93% 09/23/2023 11:52 AM CDT Inhaled Oxygen Concentration - - Weight 100.7 kg (222 lb) 09/23/2023 11:52 AM CDT Height 177.8 cm (5' 10 ) 09/23/2023 11:52 AM CDT Body Mass Index 31.85 09/23/2023 11:52 AM CDT Plan of Treatment Upcoming Encounters Date Type Department Care Team (Late st Contact Info) Description 06/26/2024 1:30 PM CDT [facility] [address] [place] [phone] Rich Redmond, PAOtisC [address] [place] [address] 09/10/2024 12:15 PM CDT [facility] Visit [facility] [place] [phone] Nancy Morel MD [address] [place], [place] [phone] Health Maintenance Due Date Last Done Comments Hepatitis C 1964 DTaP, Tdap and Td Vaccines (1 - Tdap) 1965 Zoster Vaccines (1 of 2) 1996 AAA SCREENING 05/11/2011 Annual Medicare Wellness Visit 05/11/2011 RSV Immunization or 60+ Years (1 - 1-dose 75+ series) 2021 ASCVD LDL 11/11/2022 11/11/2021, 01/15, 08/08/2020, Additional history exists COVID-19 Vaccine ( - 2023- season) 2023 12/18/2020, 04/25/2020, 04/04/2020 Influenza Adult (#1) 2023 11/25/2020, 12/07/2019, 11/23/2018, Additional history exists PHQ-2 (Physician [place]) 02/15/2024 Pneumococcal Vaccine: 65+ Years Completed 12/01/2017, 05/30/2016 Meningococcal B Vaccine Aged Out No l onger eligible based on patient's age to complete this topic Meningococcal Vaccine Aged Out No rula joyce eligible based on patient's age to complete this topic RSV Immunizations Under 20 Months Aged Out No longer eligible based on patient's age to complete this topic Procedures Procedure Name Priority Date/Time Associated Diagnosis Comments LIPID PANEL Routine 11/11/2021 Mixed hyperlipidemia Paroxysmal atrial fibrillation from Last 3 Months or Most Recently Relevant to Health Maintenance Results * LIPID PANEL (11/11/2021) CHOLESTEROL 105 HDL 43 TRIGLYCERIDES 36 LDL (CALCULATED) 55 11/11/2021 us Juan Woo MD LABORATORY Final Resul t from Last 3 Months or Most Recently Relevant to Health Maintenance Insurance MEDICARE [facility] [employer] MEDICARE Advance Directives Documents on File Type Date Recorded Patient Computer Support Specialist Instructor Expl anation Advance Directives and Living Will 11/01/2018 11:21 AM refer to JUAN saldivar regarding Advance Directives Power of Director Of Recruiting 11/01/2018 11:21 AM Scott Jacob-[facility]-other; Hortencia Jacob-1st alternate [facility]-spouse * Full Code (Latest Code Status on File) Date Activated Date Inactivated Comments 10/25/2018 11:34 AM 10/26/2018 12:10 PM * No Code Status Date Activated Date Inactivated Comments 08/21/2015 1:36 PM 10/25/2018 5:55 AM retail 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 cies for short term meds- Needs to use [facility] for all maintenance meds with a 90 day supply Healthcare Agents on File Name Relationship Healthcare Agent Relationship Communication Demetrius Morris ([facility]) Nidia Healthcare Agent Health Care Agent [phone] (Mobile ) Hortencia Jacob Spouse First Alternate Health Care Agent Care Teams Fur Blower Operator Relationship Specialty Start Date End Date Mathieu Nunes MD [address] [place] [address] PCP - General INTERNAL MEDICINE 10/24/18 Jesica Ferro MD [address] [place] [phone] EP Corporate Trust Officer CLINICAL CARDIAC ELECTROPHYSIOLOGY 08/21/15 Nancy Morel MD [address] [place], [place] [phone] Consulting Physician CARDIOVASCULAR DISEASE 06/01/23
--- OUTSIDE RECORDS SUMMARY | 2024-04-25 16:00 | XMS_ITS | Encounter Summary ---
Author Organization [facility] Address [facility] [place] [address] Care Team Providers Care Motorboat Mechanic Inboard Name Role Phone Jesica Ferro MD Unavailable Mathieu Nunes MD Primary Care Provider [phone] Nancy Morel MD Unavailable Encounter Details Date Type Department Care Team (Late st Contact Info) Description 09/05/2023 MyChart Message Enc HEALTH INFO [facility] Provider Pt Amendment Social History Tobacco Use Types Packs/Day Years [...] Description 06/26/2024 1:30 PM CDT Office Visit [facility] [address] [place] [address] Rich Redmond, PAOtisC [address] [place] [address] 09/10/2024 12:15 PM CDT Office Visit [facility] [place] [address] Nancy Morel MD [address] [place] [address] documented as of this encounter Visit Diagnoses Not on filedocumented in this encounter Care Teams Motorboat Mechanic Inboard Relationship Specialty Start Date End Date Mathieu Nunes MD [address] [place] [phone] PCP - General INTERNAL MEDICINE 10/24/18 Jesica Ferro MD [address] [place] [phone] EP Oracle Scm Consultant CLINICAL CARDIAC ELECTROPHYSIOLOGY 08/21/15 Nancy Morel MD [address] [place] [address] Consulting Physician CARDIOVASCULAR DISEASE 06/01/23 documented as of this encounter
== END 2024-04-25 14:13 | disposition home or self-care (01) ==
PROVIDERS: PCP Internal Medicine; Visit Provider Internal Medicine
DX: R05.9 Cough, unspecified (principal)
CPT/HCPCS: 36415; 71046; 80053; 85027; 87637; 87651

== ENCOUNTER 2024-06-01 08:13 | Outpatient (CLI) | payer MEDICARE, SELFPAY ==
[2024-06-01 08:26] LABS: Hematocrit 47.3 % (37.0-46.0); Hemoglobin 15.7 g/dL (12.4-15.3); Mean Corpuscular HGB Conc 33.2 g/dL (32-36); Mean Corpuscular Hemoglobin 29.9 pg (27.0-31.0); Mean Corpuscular Volume 90.1 fL (78.0-102.0); Mean Platelet Volume 10.8 fl (8.7-11.0); Platelet Count Result 159 K/mm3 (150-420); Red Blood Count 5.25 M/mm3 (4.70-6.10); Red Cell Distribution Width 12.3 % (11.6-14.4); White Blood Count 5.7 K/mm3 (4.8-10.8)
[2024-06-01 08:36] LABS: Hemoglobin A1C 5.8 % (<5.7)
[2024-06-01 08:56] LABS: Add Urine Microscopic? YES; Appearance Urine Clear (Clear); Bilirubin Urine Negative (Negative); Blood Urine 1+ (Negative); Color Urine Yellow (Yellow); Glucose Urine UA Negative (Negative); Ketones Urine Negative (Negative); Leukocyte Esterase Ur Negative LEU/UL (Negative); Nitrate Urine Negative (Negative); Protein Urine Negative (Negative); Urobilinogen Urine 0.2 mg/dL (0.2-1.0)
[2024-06-01 09:10] LABS: Alanine Aminotransferase 40 U/L (16-63); Albumin Level 3.9 g/dL (3.4-5.0); Alkaline Phosphatase 72 U/L (46-116); Anion Gap 5 mmol/L (4-12); Aspartate Amino Transferase 30 U/L (15-37); Blood Urea Nitrogen 12 mg/dL (7-18); Carbon Dioxide 32 mmol/L (21-32); Chloride 105 mmol/L (98-108); Cholesterol 122 mg/dL (0-200); Creatine Kinase 56 U/L (39-308); Estimated Glomerular Filt Rate > 60; Glucose 106 mg/dL (70-99); HDL Direct 45 mg/dL (40-60); LDL Cholesterol Calculated 66 mg/dL (<130); Osmolality Calculated 293 mOsm/kg (285-295); Potassium 4.3 mmol/L (3.5-5.1); Sodium 142 mmol/L (136-145); Total Protein 7.3 g/dL (6.4-8.2); Triglycerides 53 mg/dL (0-150)
[2024-06-01 09:12] LABS: Bacteria Urine Trace /hpf; WBC Urine None seen /hpf (0-3)
[2024-06-01 09:13] LABS: Vitamin B12 > 2000 pg/mL (193-986)
== END 2024-06-01 08:14 | disposition home or self-care (01) ==
LOC: CHSLAB 08:16
PROVIDERS: PCP Internal Medicine; Visit Provider Internal Medicine
DX: E53.8 Deficiency of other specified B group vitamins (principal); E78.2 Mixed hyperlipidemia; N39.0 Urinary tract infection, site not specified; R73.01 Impaired fasting glucose
CPT/HCPCS: 36415; 80053; 80061; 81001; 82550; 82607; 83036; 85027